=== PATIENT | male | born 1980 | race Caucasian/White ===

== ENCOUNTER 2021-10-17 13:33 | Emergency (ER) | payer BC, SELFPAY ==
--- NOTE | ~2021-10-17 | CT_ITS ---
EXAMINATION: CT abdomen pelvis w con DATE: 10/17/2021 15:35 INDICATION: Nausea, vomiting, and diarrhea. TECHNIQUE: Computed tomography (CT) of the abdomen and pelvis was performed with 100 mL Omnipaque 350 intravenous contrast. Automated exposure control and iterative reconstruction technique were employe d. The dose-length product was 401.55 mGy-cm. COMPARISON: None. FINDINGS: The visualized portions of the lung bases demonstrate minimal atelectasis. A calcified left lung nodule is consistent with old granulomatous disease. No pleural effusion. The heart size is nor mal. No pericardial effusion. The liver, gallbladder, pancreas, adrenal glands, and kidneys are dariela l. Calcifications in the spleen are consistent with old granulomatous disease. There are no dilated l oops of bowel. The appendix is normal. There is a left inguinal hernia containing fat. There are no p athologically enlarged lymph nodes. There is no free intraperitoneal fluid. There is mild thoracolumb ar spondylosis. IMPRESSION: 1. Left inguinal hernia containing fat. Reviewed, dictated and finalized at location A.
[2021-10-17 13:57] VITALS: BP 140/77; PULSE 66; RESP 18; TEMP 36.6; O2SAT 100
--- NOTE | 2021-10-17 14:30 | ED.GENADULT ---
HPI - General Adult General Chief complaint: Nausea/Vomiting/Diarrhea Stated complaint: nausea/vomiting x 1 week Time Seen by Provider: 10/17/21 14:09 History of Present Illness HPI narrative: 41-year-old male presented to the emergency department for evaluation of nausea vomiting and diarrhea. Patient states that the symptoms have been ongoing for approximately the last week. Patient states his symptoms have been intermittent but felt like the symptoms worsened today. Patient does have a history of almost daily alcohol use. Patient denies any prior history of alcohol withdrawal. Related Data Allergies Allergy/AdvReac Type Severity Reaction Status Date / Time No Known Allergies Allergy Verified 10/18/21 11:19 Review of Systems Review of Systems: CONSTITUTIONAL: Denies fever, chills, or sweats. EYES: Denies visual changes, redness, or discharge. ENT: Denies rhinorrhea, congestion, sore throat, or otalgia. CARDIOVASCULAR: Denies chest pain, palpitations, or edema. RESPIRATORY: Denies cough or dyspnea. GASTROINTESTINAL: See HPI GENITOURINARY: Denies dysuria or hematuria. SKIN: Denies rash or itching. MUSCULOSKELETAL: Denies back pain, joint pain, or myalgia. NEUROLOGIC: Denies headache, numbness, or weakness. [facility] Family History Family History (Updated 10/18/21 @ 11:30 by Apryl Richards [facility]) Father Anemia Mixed hyperlipidemia Mother Mixed hyperlipidemia Social History Social History Smoking status: Current some day smoker Tobacco type: cigarettes Exam Narrative: APPEARANCE: Well appearing, no pain, no distress, well-nourished. HEAD: normocephalic, atraumatic. EYES: PERRLA/EOMI, conjunctivae clear. NOSE: Normal no drainage THROAT: Pharynx clear, no exudate. NECK: Supple. No adenopathy, no masses. RESPIRATORY: Airway patent, respirations nonlabored. Clear to auscultation bilaterally, no rales, rhonchi, wheezing. CARDIOVASCULAR: Regular rate and rhythm without murmurs rubs or gallops. ABDOMINAL: Soft, nontender, nondistended, normal bowel sounds MUSCULOSKELETAL: Moves all extremities. Strength/ROM intact, No edema, No calf tenderness. NEURO: Alert. Cranial nerves II through XII intact. Grossly intact SKIN: Warm, dry. Normal Color Course Course Emergency Course: Patient did feel improved with treatment. Patient will update on results of the labs as work-up. All questions answered. Patient was well-appearing at time of discharge. Vital Signs Vital signs: Vital Signs Temperature 97.8 F 10/17/21 13:57 Pulse Rate 66 10/17/21 13:57 Respiratory Rate 18 10/17/21 13:57 Blood Pressure 140/77 10/17/21 13:57 Pulse Oximetry 100 10/17/21 13:57 Temperature 97.8 F 10/17/21 13:57 Pulse Rate 766 H 10/17/21 18:08 Respiratory Rate 666 H 10/17/21 18:08 Blood Pressure 134/82 10/17/21 18:08 Pulse Oximetry 100 10/17/21 18:08 Medical Decision Making Vital Signs Vital Signs: Vital Signs Temperature 97.8 F 10/17/21 13:57 Pulse Rate 66 10/17/21 13:57 Respiratory Rate 18 10/17/21 13:57 Blood Pressure 140/77 10/17/21 13:57 Pulse Oximetry 100 10/17/21 13:57 Temperature 97.8 F 10/17/21 13:57 Pulse Rate 766 H 10/17/21 18:08 Respiratory Rate 666 H 10/17/21 18:08 Blood Pressure 134/82 10/17/21 18:08 Pulse Oximetry 100 10/17/21 18:08 Lab Data Lab results reviewed: Yes I reviewed the patient's lab results. Result diagrams: 10/17/21 14:45 10/17/21 14:45 Labs: Lab Results 10/17/21 10/17/21 10/17/21 Range/Units 14:45 14:45 14:45 WBC 12.2 H (4.5-10.0) K/mm3 RBC 4.25 L (4.6-6.20) M/mm3 Hgb 13.1 L (14.0-18.0) g/dL Hct 35.3 L (42.0-52.0) % MCV 83.1 (80-100) fl MCH 30.8 (26-34) pg MCHC 37.1 H (32-36) g/dl RDW 12.5 (11.5-14.5) % Plt Count 229 (150-375) k/mm3 MPV 8.8 (7.4-10.4) fl Immature Gran % (Au
[2021-10-17] MEDS: SODIUM CHLORIDE 0.9% IV 1,000 ML 999 ML IV CONT ×2 (14:33→16:18)
[2021-10-17] MEDS: ONDANSETRON INJ 4 MG/2 ML VIAL IV PUSH (14:33)
[2021-10-17 14:52] LABS: Basophils Percent Auto 0.3 % (0.2-1.2); Eosinophils Percent Auto 0.1 % (0-4.4); Hematocrit 35.3 % (42.0-52.0); Hemoglobin 13.1 g/dL (14.0-18.0); Immature Granulocyte Absolute 0.07 K/mm3 (0.00-0.031); Immature Granulocyte Percent A 0.6 % (0-0.5); Lymphocytes Absolute Auto 0.37 K/mm3 (0.9-3.2); Mean Corpuscular HGB Conc 37.1 g/dl (32-36); Mean Corpuscular Hemoglobin 30.8 pg (26-34); Mean Corpuscular Volume 83.1 fl (80-100); Mean Platelet Volume 8.8 fl (7.4-10.4); Monocytes Absolute Auto 0.7 K/mm3 (0.1-0.6); Monocytes Percent Auto 5.8 % (2.6-8.5); Neutrophils Percent Auto 90.2 % (45.5-73.1); Platelet Count Result 229 k/mm3 (150-375); Red Blood Count 4.25 M/mm3 (4.6-6.20); Red Cell Distribution Width 12.5 % (11.5-14.5); White Blood Count 12.2 K/mm3 (4.5-10.0)
[2021-10-17 15:01] LABS: Lactic Acid Reflex 1.2 mmol/L (0.7-2.0)
[2021-10-17 15:02] LABS: Alanine Aminotransferase 17 U/L (6-50); Albumin Level 4.5 g/dL (3.5-5.1); Alkaline Phosphatase 45 U/L (38-126); Anion Gap 12 mmol/L (8-16); Aspartate Amino Transferase 20 U/L (17-59); Blood Urea Nitrogen 11 mg/dL (9-20); Calcium 9.1 mg/dL (8.4-10.2); Carbon Dioxide 23 mmol/L (22-30); Chloride 103 mmol/L (98-107); Estimated CRCL calculation 108 ml/min; Estimated Glomerular Filt Rate > 60; Glucose 141 mg/dL (65-110); Lipase 40 U/L (23-300); Sodium 138 mmol/L (137-145)
[2021-10-17 15:12] VITALS: BP 93/66; O2SAT 100
[2021-10-17] MEDS: METOCLOPRAMIDE HCL INJ 10 MG/2 ML VIAL IV PUSH (16:18)
[2021-10-17 16:22] VITALS: BP 141/82; PULSE 61; RESP 18; O2SAT 100
[2021-10-17] MEDS: LORazepam INJ (*CRX) 2 MG/ML VIAL 1 MG IV PUSH (17:19)
[2021-10-17] MEDS: diphenhydrAMINE HCl INJ 50 MG/ML VIAL 25 MG IV PUSH (17:20)
[2021-10-17 18:08] VITALS: BP 134/82; PULSE 766; RESP 666; O2SAT 100
== END 2021-10-17 18:14 | disposition home or self-care (01) ==
PROVIDERS: Emergency Provider Emergency Medicine; PCP Family Medicine
DX: R11.2 Nausea with vomiting, unspecified (principal); F17.210 Nicotine dependence, cigarettes, uncomplicated
CPT/HCPCS: 36415; 74177; 80053; 83605; 83690; 85025; 96361; 96374; 96375; 99284; J1200; J2060; J2405; J2765; J7030; Q9967

== ENCOUNTER 2021-10-19 23:31 | Observation (INO) | payer BC, SELFPAY ==
[2021-10-19 23:57] VITALS: BP 138/98; PULSE 71; RESP 16; O2SAT 100
[2021-10-20] VITALS (28 sets, daily range): BP systolic 117–160; BP diastolic 69–102; PULSE 46–77; RESP 9–24; TEMP 36.4–37.1; O2SAT 94–100; BMI 25.6
[2021-10-20] MEDS: SODIUM CHLORIDE 0.9% IV 1,000 ML 999 ML IV CONT (00:57)
[2021-10-20] MEDS: PROMETHAZINE HCL 25 MG/ML AMPUL 12.5 MG IV PUSH (00:57)
[2021-10-20] MEDS: PANTOPRAZOLE SODIUM IV 40 MG VIAL IV PUSH ×3 (00:57→18:14)
[2021-10-20 01:09] LABS: Basophils Percent Auto 0.3 % (0.2-1.2); Eosinophils Percent Auto 0.1 % (0-4.4); Hematocrit 35.1 % (42.0-52.0); Hemoglobin 12.6 g/dL (14.0-18.0); Immature Granulocyte Absolute 0.09 K/mm3 (0.00-0.031); Immature Granulocyte Percent A 0.8 % (0-0.5); Lymphocytes Absolute Auto 0.69 K/mm3 (0.9-3.2); Lymphocytes Percent Auto 5.9 % (18.3-44.2); Mean Corpuscular HGB Conc 35.9 g/dl (32-36); Mean Corpuscular Hemoglobin 30.6 pg (26-34); Mean Corpuscular Volume 85.2 fl (80-100); Mean Platelet Volume 8.8 fl (7.4-10.4); Monocytes Absolute Auto 0.9 K/mm3 (0.1-0.6); Monocytes Percent Auto 7.5 % (2.6-8.5); Neutrophils Absolute Auto 10.1 K/mm3 (1.3-6.7); Neutrophils Percent Auto 85.4 % (45.5-73.1); Platelet Count Result 279 k/mm3 (150-375); Red Blood Count 4.12 M/mm3 (4.6-6.20); Red Cell Distribution Width 13.1 % (11.5-14.5); White Blood Count 11.8 K/mm3 (4.5-10.0)
[2021-10-20 01:18] LABS: Alanine Aminotransferase 19 U/L (6-50); Albumin Level 4.6 g/dL (3.5-5.1); Alkaline Phosphatase 43 U/L (38-126); Anion Gap 13 mmol/L (8-16); Aspartate Amino Transferase 22 U/L (17-59); Bilirubin,Total 1.1 mg/dL (0.2-1.3); Blood Urea Nitrogen 11 mg/dL (9-20); Calcium 8.7 mg/dL (8.4-10.2); Carbon Dioxide 28 mmol/L (22-30); Chloride 97 mmol/L (98-107); Estimated CRCL calculation 105 ml/min; Estimated Glomerular Filt Rate > 60; Glucose 145 mg/dL (65-110); Lipase 52 U/L (23-300); Potassium 3.2 mmol/L (3.4-5.0); Sodium 138 mmol/L (137-145)
--- NOTE | 2021-10-20 02:03 | PC.NURSE ---
Notified Dr Solomon of pt's continued c/o vomiting.
[2021-10-20 02:07] LABS: Appearance Urine Clear (Clear); Bilirubin Urine Negative (Negative); Blood Urine Negative (Negative); Color Urine Yellow (Yellow); Glucose Urine UA Negative (Negative); Ketones Urine 1+ mg/dL (Negative); Leukocyte Esterase Ur Negative LEU/UL (Negative); Nitrate Urine Negative (Negative); Protein Urine Negative (Negative); Specific Grav Ur 1.015 (1.001-1.035); Urobilinogen Urine 0.2 mg/dL (<2.0)
[2021-10-20] MEDS: ONDANSETRON INJ 4 MG/2 ML VIAL IV PUSH ×4 (02:14→13:31)
[2021-10-20 02:34] LABS: Add Urine Microscopic? YES; RBC Urine 0-2 /hpf (0-2); WBC Urine 0-3 /hpf
--- NOTE | 2021-10-20 03:08 | PC.NURSE ---
Pt reports feeling nauseous and vomiting. When RN in room pt spit into emesis bag. No vomit noted.
--- NOTE | 2021-10-20 03:24 | ED.NAVMDI ---
HPI - Nausea/Vomiting/Diarrhea General Chief complaint: Nausea/Vomiting/Diarrhea Stated complaint: N/V Time Seen by Provider: 10/20/21 00:25 History of Present Illness HPI Narrative: Patient is a 41-year-old male who presents ER with nausea and vomiting. He was recently seen in the ER for vomiting and follow-up with his PCP. There is concern he may have cannabis cyclic vomiting syndrome. He has not yet discontinued his cannabis use. He reports he has had issues like this intermittently over the last few years but they usually stemmed from drinking alcohol. Patient is only kept down a small amount of fluid over the last day. He has been taking scheduled promethazine and Zofran without improvement. No fevers or chills or sweats. Has abdominal discomfort related to the vomiting but no localizing pain. Related Data Home Medications Medication Instructions Recorded Confirmed No Home Medications 10/20/21 10/20/21 Allergies Allergy/AdvReac Type Severity Reaction Status Date / Time No Known Allergies Allergy Verified 10/20/21 05:45 Review of Systems Review of Systems: All systems reviewed & are unremarkable except as noted in HPI and below Constitutional: Constitutional: Denies chills and Denies fever(s) ENT: Denies nasal congestion and Denies sore throat Cardiovascular: Cardiovascular: Denies chest pain, Denies rapid heart rate and Denies radiating jaw, neck or arm pain Respiratory: Respiratory: Denies cough and Denies dyspnea Gastrointestinal: Gastrointestinal: Reports abdominal pain, Reports nausea and Reports vomiting Genitourinary: Genitourinary: Denies dysuria and Denies urinary frequency Comments: dark urine PMFSH Past Medical History Medical History (Updated 10/20/21 @ 07:09 by Martell Briones MD) Healthy adult male Surgical History Surgical History (Updated 10/20/21 @ 03:30 by Martell Briones MD) No pertinent past surgical history Family History Family History Father Anemia Mixed hyperlipidemia Mother Mixed hyperlipidemia Social History Social History Smoking status: Current some day smoker Alcohol intake: current Drinks per week: 1 Substance use: current Substance use type: marijuana Spiritual care concerns: No Exam Narrative: GENERAL: Well-appearing, well-nourished, and in no acute distress. HEAD: Normocephalic, atraumatic. EYES: PERRL and EOMI. CHEST: Clear to auscultation. No respiratory distress. HEART: Regular rate and rhythm. Normal peripheral pulses. ABDOMEN: Soft, nontender, nondistended. EXTREMITIES: Normal range of motion. No edema. SKIN: Warm, dry, no rash. NEURO: Alert and oriented x3. PSYCH: Normal mood and affect. Course Course Emergency Course: Patient still with dry heaving and nausea after Zofran and promethazine and Protonix. We will plan admission for observation with hospitalist service. Vital Signs Vital signs: Vital Signs Pulse Rate 71 10/19/21 23:57 Respiratory Rate 16 10/19/21 23:57 Blood Pressure 138/98 H 10/19/21 23:57 Pulse Oximetry 100 10/19/21 23:57 Temperature 97.6 F 10/20/21 05:44 Pulse Rate 61 10/20/21 05:44 Respiratory Rate 20 10/20/21 05:44 Blood Pressure 150/90 H 10/20/21 05:44 Pulse Oximetry 100 10/20/21 05:44 Oxygen Delivery Room Air 10/20/21 05:52 MDM - Nausea/Vomiting/Diarrhea Lab Data Result diagrams: 10/20/21 01:03 10/20/21 01:03 Labs: Lab Results 10/20/21 10/20/21 10/20/21 Range/Units 01:03 01:03 01:59 WBC 11.8 H (4.5-10.0) K/mm3 RBC 4.12 L (4.6-6.20) M/mm3 Hgb 12.6 L (14.0-18.0) g/dL Hct 35.1 L (42.0-52.0) % MCV 85.2 (80-100) fl MCH 30.6 (26-34) pg MCHC 35.9 (32-36) g/dl RDW 13.1 (11.5-14.5) % Plt Count 279 (150-375) k/mm3 MPV 8.8 (7.4-10.4) fl [place]
--- NOTE | 2021-10-20 04:50 | ECG_ITS ---
Measurements Intervals [place] Rate: 59 P: 70 MN: 158 QRS: 63 QRSD: 105 T: 58 QT: 422 QTc: 419 Interpretive Statements SINUS BRADYCARDIA WITH SINUS ARRHYTHMIA BASELINE WANDER- II, III BORDERLINE ECG NO PREVIOUS ECG AVAILABLE FOR COMPARISON Electronically Signed On 10-20-2021 13:58:24 CDT by Kamari Christianson D.O.
--- NOTE | 2021-10-20 05:44 | ADMGEN ---
This patient, Martell Persaud, was admitted to 2 Medical Room 258-01 @ 0540 . Patient/family oriented to hospital policies and general routines including ID bracelet, bed and alarms, visiting hours, pain management, procedures, bathroom and other care routines, personal items, smoking policy, room service/diet, and visiting hours. Information on how to activate the Rapid Response Team has been discussed. Patient/Family are encouraged to report perceived risks to care and to ask questions if they do not understand what they are told or what they should do.
[2021-10-20] MEDS: LACTATED RINGERS 1,000 ML 125 ML IV CONT ×2 (05:54→19:43)
[2021-10-20] MEDS: POTASSIUM CHLORIDE INJ 40 MEQ in SODIUM CHLORIDE 0.9% IV 500 ML 130 MEQ IVPB (09:03)
[2021-10-20 10:04] LABS: Hemoglobin A1C 4.3 % (<5.7)
--- NOTE | 2021-10-20 10:45 | PM.IMHP ---
H&P: HPI History of Present Illness Date/Time: 10/20/21 10:45 Chief Complaint: Patient is a 41-year-old male who presents ER with nausea and vomiting.? He was recently seen in the ER for vomiting and follow-up with his PCP.? There is concern he may have cannabis cyclic vomiting syndrome.? He has not yet discontinued his cannabis use.? He reports he has had issues like this intermittently over the last few years but they usually stemmed from drinking alcohol.? Patient is only kept down a small amount of fluid over the last day.? He has been taking scheduled promethazine and Zofran without improvement.? No fevers or chills or sweats.? Has abdominal discomfort related to the vomiting but no localizing pain. Review of Systems Review of Systems: 10 point ROS negative except as stated in HPI / Subjective PMFSH Past Medical History Medical History Healthy adult male Surgical History Surgical History No pertinent past surgical history Family History Family History Father Anemia Mixed hyperlipidemia Mother Mixed hyperlipidemia Social History Social History Smoking status: Current some day smoker Alcohol intake: current Drinks per week: 1 Substance use: current Substance use type: marijuana Spiritual care concerns: No Meds Home Medications and Allergies Home Medications Medication Instructions Recorded Confirmed Type No Home Medications 10/20/21 10/20/21 History Allergies Allergy/AdvReac Type Severity Reaction Status Date / Time No Known Allergies Allergy Verified 10/20/21 05:45 Vital Signs Vital Signs - 24 hr 10/19/21 23:57 10/20/21 00:51 10/20/21 00:52 Temperature Pulse Rate 71 74 70 Respiratory Rate 16 13 9 L Blood Pressure 138/98 H 132/82 Pulse Oximetry 100 100 Oxygen Delivery 10/20/21 01:01 10/20/21 01:15 10/20/21 01:31 Temperature Pulse Rate 65 68 77 Respiratory Rate 13 16 22 H Blood Pressure 127/81 122/77 160/102 H Pulse Oximetry 99 100 100 Oxygen Delivery 10/20/21 02:01 10/20/21 02:16 10/20/21 02:31 Temperature Pulse Rate 55 L 57 L 71 Respiratory Rate 15 14 12 Blood Pressure 153/78 H 129/85 122/73 Pulse Oximetry 100 94 96 Oxygen Delivery 10/20/21 02:45 10/20/21 03:01 10/20/21 03:16 Temperature Pulse Rate 75 59 L 60 Respiratory Rate 14 12 15 Blood Pressure 117/78 138/91 H 148/83 H Pulse Oximetry 99 100 99 Oxygen Delivery 10/20/21 03:45 10/20/21 03:46 10/20/21 04:00 Temperature Pulse Rate 68 46 L 66 Respiratory Rate 10 L 10 L 24 H Blood Pressure 136/88 Pulse Oximetry 100 98 Oxygen Delivery 10/20/21 04:15 10/20/21 04:16 10/20/21 04:31 Temperature Pulse Rate 47 L 67 50 L Respiratory Rate 12 17 14 Blood Pressure 138/81 131/76 Pulse Oximetry 100 99 Oxygen Delivery 10/20/21 04:45 10/20/21 05:00 10/20/21 05:15 Temperature Pulse Rate 52 L 65 58 L Respiratory Rate 12 16 13 Blood Pressure 127/84 Pulse Oximetry 97 98 99 Oxygen Delivery 10/20/21 05:52 10/20/21 05:44 10/20/21 08:53 Temperature 97.6 F Pulse Rate 61 Respiratory Rate 20 Blood Pressure 150/90 H Pulse Oximetry 100 95 Oxygen Delivery Room Air Room Air 10/20/21 08:03 Temperature Pulse Rate Respiratory Rate Blood Pressure Pulse Oximetry Oxygen Delivery Room Air Exam Narrative: General: alert and oriented Psych: appropriate mood nad affect Eyes: PERRLA Neck: Trachea midline, no new lesions Skin: no changes Lungs: CTA Cardiac: Normal S1,S2, no MGR ABD: soft, nd, nt, nbs Ext: no new lesions, no cce Vasc: Pulses intact H&P: Results Labs Labs: Short CBC 10/20/21 Range/Units 01:03 WBC 11.8 H (4.5-10.0) K/mm3 Hgb 12.6 L (14.0-18.0) g/dL Hct 3
[2021-10-21 03:39] VITALS: BP 124/79; PULSE 50; RESP 18; TEMP 36.9; O2SAT 100
[2021-10-21] MEDS: LACTATED RINGERS 1,000 ML 125 ML IV CONT (05:02)
[2021-10-21 07:45] LABS: Potassium 3.7 mmol/L (3.4-5.0)
[2021-10-21 08:00] VITALS: BP 137/76; PULSE 55; RESP 18; TEMP 36.6; O2SAT 100
[2021-10-21] MEDS: PANTOPRAZOLE SODIUM IV 40 MG VIAL IV PUSH (08:12)
--- NOTE | 2021-10-21 10:42 | PM.DS ---
DS: Admitting Diagnosis Discharge Date October 21, 2021 Admitting Diagnosis Nausea vomiting DS: Discharge Diagnosis Discharge Diagnosis (1) Intractable cyclical vomiting: Code(s): R11.15 - Cyclical vomiting syndrome unrelated to migraine Status: Acute Assessment and Plan: Resolved DS: Summary Hospital Course Hospital Course: Patient presented from nausea vomiting. Possibly related to cyclical vomiting syndrome. Patient does use marijuana. Nonetheless this is improved with p.r.n. medications he is tolerating a diet can be discharged. Time Spent with Patient Time attestation: Total time spent providing and/or coordinating discharge services: Exam Narrative: General: alert and oriented Psych: appropriate mood nad affect Eyes: PERRLA Neck: Trachea midline, no new lesions Skin: no changes Lungs: CTA Cardiac: Normal S1,S2, no MGR ABD: soft, nd, nt, nbs Ext: no new lesions, no cce Vasc: Pulses intact DS: Data Data Completed and Pending Labs on day of discharge: Labs from last 24 hours 10/21/21 07:34 Potassium 3.7 Discharge Plan Discharge Attending physician on discharge: Garry Plascencia Discharging Clinician: Garry Plascencia Patient Disposition: Home, Self-Care Activity: no preference Diet: as tolerated Patient Instructions: Antibiotic Form, How to Stop Smoking (DC) Stand Alone Forms: General Discharge Information Follow-up/Referrals: Pili Russell DO [Primary Care Provider] - Discharge Medications: No Action No Home Medications Date of admission: 10/20/21 04:58 Primary Care Provider: Pili Russell Admitting Provider: Raina Elder Attending physician on admission: Raina Elder Condition: Stable
== END 2021-10-21 14:40 | disposition home or self-care (01) ==
LOC: ANHED 10-20 00:39 → ANH2MED 10-20 05:43
PROVIDERS: Admitting Provider Internal Medicine; Emergency Provider Emergency Medicine; PCP Family Medicine; Visit Provider Chiropractor
DX: R11.15 Cyclical vomiting syndrome unrelated to migraine (principal); R00.1 Bradycardia, unspecified; F17.200 Nicotine dependence, unspecified, uncomplicated; F12.90 Cannabis use, unspecified, uncomplicated
CPT/HCPCS: 36415; 80053; 81001; 83036; 83690; 84132; 85025; 93005; 96361; 96374; 96375; 96376; 99285; C9113; G0378; J2405; J2550; J3480; J7030; J7040; J7120

== ENCOUNTER 2024-02-11 10:32 | Outpatient (CLI) | payer BC, SELFPAY ==
[2024-02-11 18:59] LABS: Hematocrit 41.6 % (42.0-52.0); Hemoglobin 14.7 g/dL (14.0-18.0); Mean Corpuscular HGB Conc 35.3 g/dl (32-36); Mean Corpuscular Hemoglobin 30.9 pg (26-34); Mean Corpuscular Volume 87.6 fl (80-100); Mean Platelet Volume 9.3 fl (7.4-10.4); Platelet Count Result 218 k/mm3 (150-375); Red Blood Count 4.75 M/mm3 (4.6-6.20); Red Cell Distribution Width 12.8 % (11.5-14.5); White Blood Count 7.7 K/mm3 (4.5-10.0)
[2024-02-11 19:14] LABS: Alanine Aminotransferase 29 U/L (6-50); Albumin Level 4.4 g/dL (3.5-5.1); Alkaline Phosphatase 36 U/L (38-126); Anion Gap 1 mmol/L (4-12); Aspartate Amino Transferase 30 U/L (17-59); Bilirubin,Total 0.6 mg/dL (0.2-1.3); Blood Urea Nitrogen 14 mg/dL (9-20); Calcium 9.4 mg/dL (8.4-10.2); Carbon Dioxide 30 mmol/L (22-30); Chloride 105 mmol/L (98-107); Cholesterol 151 mg/dL (0-200); Estimated Glomerular Filt Rate > 60; Glucose 96 mg/dL (65-110); HDL Direct 52 mg/dL; Potassium 4.6 mmol/L (3.4-5.0); Sodium 136 mmol/L (137-145); Triglycerides 61 mg/dL (<150)
[2024-02-11 19:27] LABS: LDL Cholesterol Direct 76 mg/dL
== END 2024-02-11 10:33 | disposition home or self-care (01) ==
LOC: ANHGOSHLAB 10:34
PROVIDERS: PCP Family Medicine; Visit Provider Nurse Practitioner
DX: Z00.00 Encounter for general adult medical examination without abnormal findings (principal); Z12.5 Encounter for screening for malignant neoplasm of prostate
CPT/HCPCS: 36415; 80053; 80061; 84153; 84443; 85027